=== PATIENT | male | born 1970 | race Caucasian/White ===

== ENCOUNTER 2017-03-24 22:35 | Emergency (ER) | payer MEDICAID ==
[~2017-03-24] VITALS: Ht 175.3 cm; Wt 79.4 kg
[2017-03-24] MEDS ORDERED: NKM (22:49)
[2017-03-24 23:08] VITALS: BP 148/96
[2017-03-24] MEDS ORDERED: Lidocaine 1% MPF 10mg/ml 5ml IM ONE (23:15)
--- NOTE | 2017-03-24 23:22 | Emergency Room Report ---
History of Present Illness General Chief Complaint: Laceration Source: Patient Present Illness HPI Patient presents with complaints of laceration to the right fore head Patient was not too clear on the specific incident Reports that he was drinking earlier He reports running into a door Denies any initial loss of consciousness however the patient is fairly labile regarding his mentation here He reports that he is essentially tired Has some minimal discomfort to the lacerated area Denies any visual changes denies any focal weakness Allergies: Coded Allergies: No Known Allergies (Unverified , 06/18/12) Patient History Past Medical History: see triage record Pertinent Family History: none Reviewed Nursing Documentation: PMH: Agreed, PSxH: Agreed Nursing Documentation-PMH Past Medical History: No Stated History Review of Systems All Other Systems: negative except mentioned in HPI Physical Exam Vital Signs Date Time Temp Pulse Resp B/P (MAP) Pulse Ox O2 Delivery O2 Flow Rate FiO2 03/24/17 22:44 97.9 88 16 148/96 98 Room Air Sp02 EP Interpretation: reviewed, normal General Appearance: well appearing, no apparent distress Head: other - Semicircular 1.5 cm laceration just above the eyebrow Eyes: bilateral eye PERRL, bilateral eye EOMI ENT: hearing grossly normal, normal pharynx, TMs + canals normal, uvula midline Neck: full range of motion, supple, no meningismus, no bony tend Respiratory: lungs clear, normal breath sounds, no rhonchi, no respiratory distress, no retraction, no accessory muscle use Cardiovascular #1: normal peripheral pulses, regular rate, rhythm, no edema, no gallop, no JVD, no murmur Gastrointestinal: normal bowel sounds, non tender, soft, no mass, no organomegaly, non-distended, no guarding, no hernia, no pulsatile mass, no rebound Genitourinary: no CVA tenderness Musculoskeletal: normal inspection Neurologic: oriented x3, responsive, 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, motor strength/ tone normal, sensory intact Psychiatric: mood/affect normal Skin: other - as above Lymphatic: normal inspection, no adenopathy Procedures Laceration/Wound Repair Laceration/Wound Repair : Consent: Verbal Wound Location: face Wound's Depth, Shape: into muscle Wound Length (cm): 1 Wound Explored: clean Irrigated w/ Saline (ccs): 200 Betadine Prep?: Yes Anesthesia: 1% Lidocaine Volume Anesthetic (ccs): 5 Wound Debrided: minimal Wound Repaired With: sutures Suture Size/Type: 6:0 Number of Sutures: 6 Layer Closure?: No Sterile Dressing Applied?: Yes Patient Tolerated: Well Complications: None Medical Decision Making Diagnostic Impression: Primary Impression: Laceration ER Course Laceration repair as noted in the report Given the patient was initially somewhat drowsy In the head injury CT imaging was obtained does not show any obvious acute pathology Patient is dispositioned to [place] CT/MRI/US Diagnostic Results CT/MRI/US Diagnostic Results : Impression CT head no acute disease Last Vital Signs Date Time Temp Pulse Resp B/P (MAP) Pulse Ox O2 Delivery O2 Flow Rate FiO2 03/24/17 23:08 97.9 16 148/96 98 Room Air 03/24/17 22:44 88 Status: improved Disposition: HOME, SELF-CARE Condition: Improved Additional Instructions: Patient is provided with the discharge instructions notified to follow up with primary doctor in the next 2-3 days otherwise return to the er with any worsening symptoms. Please note that this report is being documented using [employer] technology. This can lead to erroneous entry secondary to incorrect interpretation by the dictating instrument. DAHIANA MELENDEZ D.O. Mar 24, 2017 23:21
[2017-03-24] MEDS ORDERED: Bacitracin Oint UD TOPIC ONE (23:30)
[2017-03-25 01:04] VITALS: BP 140/94
--- NOTE | 2017-03-27 11:01 | Diagnostic Imaging Report ---
Indication: Head trauma, status post fall Technique: Continuous helical CT scanning of the head was performed without intravenous contrast material. Axial and coronal 5 mm sections were generated. Radiation dose was minimized using automated exposure control Dose: Total Dose Length Product - DLP [address] Dose Index - CTDIvol(s) 70.38 mGy. Comparison: None Findings: The ventricular system is normal in size and configuration. There is no shift of midline structures. No abnormal extra-axial fluid collections are noted. There is no evidence of intracerebral bleeding. No other abnormal high or low density areas are noted within the brain. Intact calvarium. Visualized orbits and sinuses are unremarkable. Impression: Normal CT scan of the head without contrast material. This agrees with the preliminary interpretation provided overnight by [facility]. The CT scanner at [facility] is accredited by the [employer] and the scans are performed using protocols designed to limit radiation exposure to as low as reasonably achievable to attain images of sufficient resolution adequate for diagnostic evaluation.
== END 2017-03-25 01:08 | disposition home or self-care (01) ==
LOC: EMR 23:35
DX: S01.81XA Laceration without foreign body of other part of head, initial encounter (principal); W22.09XA Striking against other stationary object, initial encounter; Y92.9 Unspecified place or not applicable
CPT/HCPCS: 70450; 99284

== ENCOUNTER 2017-06-11 12:18 | Emergency (ER) | payer MEDICAID ==
[~2017-06-11] VITALS: Ht 172.7 cm; Wt 79.4 kg
[~2017-06-11 12:18] MED LIST: NKM
[2017-06-11 12:43] VITALS: BP 164/127
[2017-06-11 13:36] VITALS: BP 133/94
--- NOTE | 2017-06-11 14:19 | Emergency Room Report ---
History of Present Illness General Chief Complaint: Pain Source: Patient Present Illness HPI 46-year-old male, with right-sided inguinal hernia, presenting with pain and hernia. Patient states that it came out, for about 30 minutes, and then spontaneously went back in and out patient's pain has resolved upon coming to the emergency room. Patient states that he has a re\re seen a surgeon, has an elective surgery is scheduled for June 30. He is currently denying any pain nausea vomiting. No constipation Allergies: Coded Allergies: No Known Allergies (Unverified , 06/18/12) Patient History Past Medical History: see triage record Past Surgical History: none Pertinent Family History: none Reviewed Nursing Documentation: PMH: Agreed, PSxH: Agreed Review of Systems All Other Systems: negative except mentioned in HPI Physical Exam Vital Signs Date Time Temp Pulse Resp B/P (MAP) Pulse Ox O2 Delivery O2 Flow Rate FiO2 06/11/17 12:35 98.6 103 19 164/127 97 Room Air 98.6 Sp02 EP Interpretation: reviewed, normal General Appearance: normal inspection, well appearing, no apparent distress, alert, GCS 15, non-toxic Head: normocephalic, atraumatic Eyes: bilateral eye normal inspection, bilateral eye PERRL, bilateral eye EOMI ENT: normal ENT inspection, normal pharynx, normal voice, moist mucus membranes Neck: normal inspection, full range of motion, supple Respiratory: normal inspection, lungs clear, normal breath sounds, no respiratory distress, no retraction, no wheezing, speaking full sentences, chest symmetrical Cardiovascular #1: normal inspection, regular rate, rhythm, no edema, normal capillary refill Cardiovascular #2: 2+ radial (R), 2+ radial (L) Gastrointestinal: normal inspection, non tender, soft, non-distended, no guarding Genitourinary: other - Reducible inguinal hernia, no strangulation Musculoskeletal: normal inspection, back normal, normal range of motion, non- tender Neurologic: normal inspection, alert, oriented x3, responsive, motor strength/ tone normal, sensory intact, normal gait, speech normal Psychiatric: normal inspection, judgement/insight normal, memory normal Skin: normal inspection, normal color, no rash, warm/dry, well hydrated, normal turgor Medical Decision Making Diagnostic Impression: Primary Impression: Reducible right inguinal hernia ER Course 46-year-old male with right-sided inguinal hernia that is reducible DDX: Reducible right-sided inguinal hernia Plan: None ER course: Patient has remained stable during ED stay. Feels better Disposition: Patient is to be discharged to home. Patient is instructed to follow up with surgeon Strict return precautions discussed with patient such as worsening/severe pain, strangulate in hernia nausea, vomiting, which may indicate severe illness. Patient verbalizes understanding and agrees with plan. Please note that this Emergency Department Report was dictated using [employer] technology software, occasionally this can lead to erroneous entry secondary to interpretation by the dictation equipment Last Vital Signs Date Time Temp Pulse Resp B/P (MAP) Pulse Ox O2 Delivery O2 Flow Rate FiO2 06/11/17 13:36 98 18 133/94 100 Room Air 06/11/17 12:43 98.6 98.6 Disposition: HOME, SELF-CARE Condition: Improved [facility]: [facility]ERR[facility] (PCP[facility] Patient Instructions: Hernia, Adult, [id number] Sofia Brandt M.D. Jun 11, 2017 14:18
== END 2017-06-11 13:42 | disposition home or self-care (01) ==
LOC: EMR 13:10
DX: K40.90 Unilateral inguinal hernia, without obstruction or gangrene, not specified as recurrent (principal)
CPT/HCPCS: 99283; Z7502

== ENCOUNTER 2017-09-02 20:14 | Emergency (ER) | payer MEDICAID ==
[~2017-09-02] VITALS: Ht 175.3 cm; Wt 79.4 kg
[2017-09-02] MEDS ORDERED: Morphine Sulfate 4mg/ml Inj IVP ONE (20:30)
[2017-09-02] MEDS ORDERED: Isovue-300 100ml vial INJ PRN (20:30)
--- NOTE | 2017-09-02 20:33 | Emergency Room Report ---
History of Present Illness General Chief Complaint: Abdominal Pain Source: Patient Present Illness HPI Patient presents with complaints of right inguinal pain Reports that he has had a hernia before however this pain came on earlier this afternoon And has stayed through the day Patient had increased nausea and vomiting Denies any chest pain or short of breath Denies any dysuria frequency Pain is 8 out of 10 localized to the right inguinal region Patient was seen here 3 months ago however was not able to make his appointment with primary physician Denies any other diarrhea Allergies: Coded Allergies: No Known Allergies (Unverified , 06/18/12) Patient History Past Medical History: see triage record Pertinent Family History: none Reviewed Nursing Documentation: PMH: Agreed; PSxH: Agreed Review of Systems All Other Systems: negative except mentioned in HPI Physical Exam Vital Signs Date Time Temp Pulse Resp B/P (MAP) Pulse Ox O2 Delivery O2 Flow Rate FiO2 09/02/17 20:20 98.7 94 18 156/112 98 Room Air 98.8 Sp02 EP Interpretation: reviewed, normal General Appearance: mild distress - In pain Head: normocephalic, atraumatic Eyes: bilateral eye PERRL, bilateral eye EOMI ENT: normal pharynx, no angioedema Neck: supple Respiratory: lungs clear Cardiovascular #1: regular rate, rhythm, no edema Gastrointestinal: soft, hernia Genitourinary: other - In the right inguinal region distally there is a palpable mass, feels soft to touch however patient does have increased pain with palpation of that area, testicle is nontender Musculoskeletal: normal inspection, back normal Neurologic: alert, oriented x3 Skin: normal color, no rash Lymphatic: no adenopathy Medical Decision Making Diagnostic Impression: Primary Impression: Reducible right inguinal hernia ER Course Multiple differentials considered including but not limited to Bowel incarceration, strangulation, other infectious pathology Clinically patient is able to have the hernia reduced however given the discomfort imaging was obtained Does not show any signs of bowel obstruction Or obstructive pathology There was a note by radiology regarding vertebral body possible fracture. There was some edema also noted. Patient however has no back pain and slowly has complaints clinically of the right inguinal region Patient remains comfortable at the bedside on reevaluation pain has improved Patient was notified that the hernia can become blocked and twisted That he requires close outpatient follow-up Labs Test 09/02/17 20:45 White Blood Count 6.7 K/UL (4.8-10.8) Red Blood Count 5.38 M/UL (4.70-6.10) Hemoglobin 16.6 G/DL (14.2-18.0) Hematocrit 48.4 % (42.0-52.0) Mean Corpuscular Volume 90 FL (80-99) Mean Corpuscular Hemoglobin 30.9 PG (27.0-31.0) Mean Corpuscular Hemoglobin Concent 34.4 G/DL (32.0-36.0) Red Cell Distribution Width 11.9 % (11.6-14.8) Platelet Count 259 K/UL (150-450) Mean Platelet Volume 6.3 FL (6.5-10.1) Neutrophils (%) (Auto) 58.6 % (45.0-75.0) Lymphocytes (%) (Auto) 25.7 % (20.0-45.0) Monocytes (%) (Auto) 11.7 % (1.0-10.0) Eosinophils (%) (Auto) 2.9 % (0.0-3.0) Basophils (%) (Auto) 1.2 % (0.0-2.0) Sodium Level 138 MMOL/L (136-145) Potassium Level 3.9 MMOL/L (3.5-5.1) Chloride Level 102 MMOL/L (98-107) Carbon Dioxide Level 28 MMOL/L (21-32) Anion Gap 8 mmol/L (5-15) Blood Urea Nitrogen 9 mg/dL (7-18) Creatinine 1.1 MG/DL (0.55-1.30) Estimat Glomerular Filtration Rate > 60 mL/min (>60) Glucose Level 95 MG/DL (74-106) Calcium Level 9.1 MG/DL (8.5-10.1) Total Bilirubin 0.4 MG/DL (0.2-1.0) Aspartate Amino Transf (AST/SGOT) 114 U/L (15-37) Alanine Aminotransferase (ALT/SGPT) 24 U/L (12-78) Alkaline Phosphatase 125 U/L (46-116) Total Protein 8.2 G/DL (6.4-8.2) Albumin 4.0 G/DL (3.4-5.0) Globulin 4.2 g/dL Albumin/Globulin Ratio 1.0 (1.0-2.7) Lipase 151 U/L (73-393) CT/MRI/US Diagnostic Results CT/MRI/US Diagnostic Results : Impression CT abdomen pelvisIMPRESSION: Acute to subacute superior endplate fracture of the L1 vertebra. Soft tissue swelling noted in the paravertebral region. Correlate clinically. Multiple other incidental findings as discussed above. Last Vital Signs Date Time Temp Pulse Resp B/P (MAP) Pulse Ox O2 Delivery O2 Flow Rate FiO2 09/02/17 20:20 98.7 94 18 156/112 98 Room Air 98.8 Status: improved Disposition: HOME, SELF-CARE Condition: Improved Scripts Acetaminophen With Codeine (T#3) (TYLENOL #3 TAB*) Y Tab 1 TAB ORAL Q8H PRN for For Pain, #10 TAB Prov: Melanie Carter DO 09/02/17 Ibuprofen* (MOTRIN*) 600 Mg Tablet 600 MG ORAL Q8H PRN for For Pain, #20 TAB 0 Refills Prov: Melanie Carter DO 09/02/17 Additional Instructions: Patient is provided with the discharge instructions notified to follow up with primary doctor in the next 2-3 days otherwise return to the er with any worsening symptoms. Please note that this report is being documented using [employer] technology. This can lead to erroneous entry secondary to incorrect interpretation by the dictating instrument. Melanie Carter DO September 02, 2017 20:33
[2017-09-02 20:51] LABS: BASOPHILS % (AUTO) 1.2 % (0.0-2.0); EOSINOPHILS % (AUTO) 2.9 % (0.0-3.0); HEMATOCRIT 48.4 % (42.0-52.0); HEMOGLOBIN 16.6 G/DL (14.2-18.0); LYMPHOCYTES % (AUTO) 25.7 % (20.0-45.0); MEAN CORPUSCULAR VOLUME 90 FL (80-99); MONOCYTES % (AUTO) 11.7 % (1.0-10.0); NEUTROPHILS % (AUTO) 58.6 % (45.0-75.0); PLATELET COUNT 259 K/UL (150-450); RED BLOOD COUNT 5.38 M/UL (4.70-6.10); RED CELL DISTRIBUTION WIDTH 11.9 % (11.6-14.8); WHITE BLOOD COUNT 6.7 K/UL (4.8-10.8)
[2017-09-02 21:00] LABS: ANION GAP 8 mmol/L (5-15); BLOOD UREA NITROGEN 9 mg/dL (7-18); CALCIUM 9.1 MG/DL (8.5-10.1); CARBON DIOXIDE 28 MMOL/L (21-32); CHLORIDE 102 MMOL/L (98-107); CREATININE 1.1 MG/DL (0.55-1.30); POTASSIUM 3.9 MMOL/L (3.5-5.1); SODIUM 138 MMOL/L (136-145)
[2017-09-02 21:05] LABS: ALANINE AMINOTRANSFERASE 24 U/L (12-78); ALKALINE PHOSPHATASE 125 U/L (46-116); ASPARTATE AMINO TRANSFERASE 114 U/L (15-37); BILIRUBIN,TOTAL 0.4 MG/DL (0.2-1.0)
[2017-09-02 21:40] VITALS: BP 156/100
[2017-09-02] MEDS ORDERED: ACETAMINOPHEN-1 EAC1 ORAL (22:14)
[2017-09-02] MEDS ORDERED: IBUPROFEN600 MG ORAL (22:14)
[2017-09-02 22:33] VITALS: BP 156/95
[2017-09-02 22:34] VITALS: BP 156/95
--- NOTE | 2017-09-03 09:42 | Diagnostic Imaging Report ---
Indication: Abdominal pain Technique: Continuous helical transaxial imaging of the abdomen and pelvis was obtained from the lung bases to the pubic symphysis during intravenous contrast administration. Coronal 2-D reformats were also obtained. Study obtained in a Siemens sensation [address] Automatic Exposure Control was utilized. Total Dose length Product (DLP): 1029.[address] Dose Index Volume (CTDIvol): 15,14.69 mGy Comparison: None Findings: There is a moderate amount of fecal retention within the colon especially the proximal right hemicolon. The appendix is normal. No free fluid or free air identified. The lung bases are clear. The solid organs appear unremarkable. Small bilateral inguinal hernias containing fat noted. Tiny hypodensities in the liver are noted nonspecific and too small to adequately characterize on this study. There is a superior endplate fracture of the L1 vertebra associated with a Schmorl's node. Acuity of this fracture is not known. Correlate clinically. There is suggestion of associated paravertebral soft tissue swelling. IMPRESSION: Acute to subacute superior endplate fracture of the L1 vertebra. Soft tissue swelling noted in the paravertebral region. Correlate clinically. Multiple other incidental findings as discussed above. [facility] has communicated the preliminary results to the Emergency Department. Their findings are largely concordant with this report. The CT scanner at [facility] is accredited by the [employer] and the scans are performed using dose optimization techniques as appropriate to a performed exam including Automatic Exposure control.
== END 2017-09-02 22:39 | disposition home or self-care (01) ==
LOC: EMR 21:47
DX: K40.90 Unilateral inguinal hernia, without obstruction or gangrene, not specified as recurrent (principal)
CPT/HCPCS: 36415; 74177; 80053; 83690; 85025; 96374; 96375; 99284; J2270; J2405; Q9967

== ENCOUNTER 2018-03-24 18:39 | Emergency (ER) | payer MEDICAID, OTHER ==
[~2018-03-24] VITALS: Ht 175.3 cm; Wt 81.6 kg
[~2018-03-24 18:39] MED LIST changes: +ACETAMINOPHEN-1 EAC1 ORAL; +IBUPROFEN600 MG ORAL
[2018-03-24 19:00] VITALS: BP 145/102
[2018-03-24] MEDS ORDERED: Ketorolac 30mg Inj IM ONE (20:45)
[2018-03-24 20:53] LABS: APPEARANCE,URINE CLEAR; BILIRUBIN, URINE NEGATIVE (NEGATIVE); GLUCOSE, URINE (UA) NEGATIVE (NEGATIVE); KETONES,URINE NEGATIVE (NEGATIVE); LEUKOCYTE ESTERASE ,URINE 1+ (NEGATIVE); NITRITE,URINE NEGATIVE (NEGATIVE); PH,URINE 8 (4.5-8.0); PROTEIN,URINE NEGATIVE (NEGATIVE); UROBILINOGEN,URINE 4 MG/DL (0.0-1.0)
[2018-03-24 20:56] LABS: COLOR,URINE YELLOW
[2018-03-24 22:00] VITALS: BP 115/72
[2018-03-24] MEDS ORDERED: CEPHALEXIN500 MG ORAL (23:18)
[2018-03-24] MEDS ORDERED: TYLENOL EXTRA500 MG ORAL (23:18)
--- NOTE | 2018-03-24 23:25 | Emergency Room Report ---
History of Present Illness General Chief Complaint: Male Urogenital Problems Source: Patient Present Illness HPI 47-year-old male patient presents the ER complaining of testicular pain for the past 2 days. Reports swelling of his right testicle. Denies dysuria or frequency. Denies hematuria. Reports testicular pain following ejaculation. Denies recent sexual activity for the past few months. Reports able to pass flatus and have bowel movements. Denies diarrhea. Denies penile discharge. Denies injury or trauma. States has not taking medication for relief of symptoms. Denies fever, chest pain or shortness of breath, abdominal pain, flank pain. Allergies: Coded Allergies: No Known Allergies (Unverified , 06/18/12) Patient History Past Medical History: see triage record Reviewed Nursing Documentation: PMH: Agreed; PSxH: Agreed Nursing Documentation-PMH Past Medical History: No Stated History Review of Systems All Other Systems: negative except mentioned in HPI Physical Exam Vital Signs Date Time Temp Pulse Resp B/P (MAP) Pulse Ox O2 Delivery O2 Flow Rate FiO2 03/24/18 18:45 97.9 111 18 145/102 98 Room Air Sp02 EP Interpretation: reviewed, normal General Appearance: well appearing, no apparent distress, alert, GCS 15, non- toxic Head: normocephalic, atraumatic Eyes: bilateral eye normal inspection, bilateral eye PERRL ENT: hearing grossly normal, normal pharynx, no angioedema, normal voice, uvula midline, moist mucus membranes Neck: full range of motion Respiratory: lungs clear, normal breath sounds, no rhonchi, no respiratory distress, no accessory muscle use, no wheezing, speaking full sentences Cardiovascular #1: regular rate, rhythm, no edema Gastrointestinal: non tender, soft, no mass, non-distended, no guarding, no rebound Genitourinary: no CVA tenderness, penis normal, other - Testicular swelling more prominent on right side, no high riding testicle, no blue dot sign, cremasteric reflex intact, no inguinal hernia Musculoskeletal: back normal, digits/nails normal, gait/station normal, normal range of motion, non-tender Neurologic: alert, oriented x3, responsive, motor strength/tone normal, sensory intact Psychiatric: mood/affect normal Skin: no rash Medical Decision Making PA Attestation Dr. Sahni is my supervising Physician whom patient management has been discussed with. Diagnostic Impression: Primary Impression: Hydrocele Additional Impression: Urinary tract infection ER Course Pt. presents to the ED c/o testicular pain. Ddx considered but are not limited to testicular torsion, epididymitis, UTI, testicular cyst, varicocele, hydrocele, inguinal hernia, orchitis. Vital signs: are WNL, pt. is afebrile ER COURSE: Provided with Toradol for pain. No hernia. Patient denies unable to pass gas or bowel movements, does not require CT abdomen pelvis. Testicular US no findings suggestive of testicular torsion or epididymitis orchitis. Bilateral peritesticular fluid noted, consistent with likely hydrocele. Intermediate punctate bright reflector in the left upper spermaticord, likely small calcification. Informed patient of results. Form patient will need to follow-up with urology specialist. Take Tylenol and elevate testicles. Informed by nurse that patient eloped. Patient eloped prior to UA results. UA shows likely infection. Will provide patient with Keflex to cover for infection, patient called and left voicemail to alert him that antibiotics and pain medicine have been sent to pharmacy for him to fill. - Please note that this Emergency Department Report was dictated using [employer] technology software, occasionally this can lead to erroneous entry secondary to interpretation by the dictation equipment. Labs Test 03/24/18 20:30 Urine Color Yellow Urine Appearance Clear Urine pH 8 (4.5-8.0) Urine Specific [place] 1.015 (1.005-1.035) Urine Protein Negative (NEGATIVE) Urine Glucose (UA) Negative (NEGATIVE) Urine Ketones Negative (NEGATIVE) Urine Blood 1+ (NEGATIVE) Urine Nitrite Negative (NEGATIVE) Urine Bilirubin Negative (NEGATIVE) Urine Urobilinogen 4 MG/DL (0.0-1.0) Urine Leukocyte Esterase 1+ (NEGATIVE) Urine RBC 2-4 /HPF (0 - 0) Urine WBC 5-10 /HPF (0 - 0) Urine Squamous Epithelial Cells None /LPF (NONE/OCC) Urine Amorphous Sediment Moderate /LPF (NONE) Urine Bacteria Moderate /HPF (NONE) CT/MRI/US Diagnostic Results CT/MRI/US Diagnostic Results : Imaging Test Ordered: Testicular ultrasound Impression No sonographic findings to suggest testicular torsion or epididymoorchitis. Trace bilateral peritesticular fluid. Indeterminate punctate bright reflectors in the left spermatic cord, likely calcification. Last Vital Signs Date Time Temp Pulse Resp B/P (MAP) Pulse Ox O2 Delivery O2 Flow Rate FiO2 03/24/18 18:45 97.9 111 18 145/102 98 Room Air Disposition: ELOPED Condition: Unknown Scripts Cephalexin* (KEFLEX*) 500 Mg Capsule 500 MG ORAL EVERY 12 HOURS, #14 CAP 0 Refills Prov: Matteo Escalona 03/24/18 Acetaminophen* (TYLENOL EXTRA STRENGTH*) 500 Mg Tablet 500 MG ORAL Q8H PRN for Prn Headache/Temp > 101, #30 TAB 0 Refills Prov: Matteo Escalona 03/24/18 Referrals: [facility],REFERRING (PCP) Patient Instructions: Scrotal Swelling, Urinary Tract Infection Matteo Escalona Mar 24, 2018 23:25
--- NOTE | 2018-03-25 12:32 | Diagnostic Imaging Report ---
Indications: Right testicular pain and swelling Technique: Grayscale and duplex images of the scrotum Comparison: none Findings:The right testicle measures 4.1cm in length. It demonstrates normal echogenicity. Normal Doppler flow. Normal epididymis. There is a small right hydrocele The left testicle measures 3.7 cm in length. It demonstrates normal echogenicity and normal Doppler flow. There is a small hydrocele. A calcification in the left spermatic cord likely represents a small phlebolith Impression: Essentially unremarkable exam Incidental finding bilateral small hydroceles This agrees with the preliminary interpretation provided overnight by [facility].
== END 2018-03-24 22:00 | disposition left against medical advice (07) ==
LOC: EMR 19:14
DX: N43.3 Hydrocele, unspecified (principal); N39.0 Urinary tract infection, site not specified
CPT/HCPCS: 76870; 81003; 87086; 96372; 99284; J1885